=== PATIENT | male | born 1945 | race Caucasian/White ===

== ENCOUNTER 2016-08-25 09:22 | Inpatient (IN) | payer MEDICARE ==
[2016-08-25] VITALS (8 sets, daily range): BP systolic 103–128; BP diastolic 58–66; PULSE 62–81; RESP 13–20; TEMP 98.4–100.4; O2SAT 96–98
[2016-08-25] MEDS ORDERED: ceFAZolin 2 GM PREMIX 50 ML ONE (09:27)
[2016-08-25] MEDS ORDERED: DIPHTH/TETANUS/ACEL PERTUSSIS (BOOSTER) 0.5 ML VIAL/PFS IM ONE ×2 (09:28→10:33)
[2016-08-25 09:43] LABS: I-STAT POTASSIUM 3.9 MMOL/L (3.5-4.9); I-STAT SODIUM 143 MMOL/L (138-146)
[2016-08-25 09:45] LABS: AUTOMATED NEUTROPHIL # 3.5 TH/MM3 (1.8-7.7); BASOPHIL # 0.1 TH/MM3 (0-0.2); BASOPHIL % 1.2 % (0.0-2.0); EOSINOPHIL # 0.2 TH/MM3 (0-0.4); EOSINOPHIL % 4.1 % (0.0-4.0); HEMATOCRIT 36.4 % (39.0-51.0); HEMO FLAGS DIFF FINAL; LYMPHOCYTE # 0.9 TH/MM3 (1.0-4.8); MEAN CELL VOLUME 92.1 FL (80.0-100.0); MEAN CORPUSCULAR HGB CONC 33.7 % (32.0-36.0); MONO % 12.6 % (0.0-8.0); NEUT % 65.1 % (16.0-70.0); PLATELET COUNT 136 TH/MM3 (150-450); RED BLOOD COUNT 3.96 MIL/MM3 (4.50-5.90); RED CELL DISTRIBUTION WIDTH 16.6 % (11.6-17.2); WHITE BLOOD COUNT 5.4 TH/MM3 (4.0-11.0)
[2016-08-25 09:51] LABS: APTT (PATIENT) 22.7 SEC (24.3-30.1); INTERNATIONAL NORMALIZED RATIO 1.1 RATIO; PROTHROMBIN TIME - PATIENT 12.7 SEC (9.8-11.6)
[2016-08-25] MEDS ORDERED: DOCUSATE SODIUM 100 MG CAP PO SCH ×2 (10:00→21:00)
[2016-08-25] MEDS ORDERED: MISCELLANEOUS NURSING INFORMATION XX SCH (10:00)
[2016-08-25] MEDS ORDERED: BACITRACIN TOP OINT 15 GM TUBE TOP SCH (10:00)
[2016-08-25] MEDS ORDERED: ENALAPRILAT 1.25 MG/ML VIAL IV PRN (10:00)
[2016-08-25] MEDS ORDERED: CHLORHEXIDINE GLUCONATE 2 % 1 PACK (2 CLOTHS) TOP PRN (10:00)
[2016-08-25] MEDS ORDERED: HYDROmorphone HCL PF 1 MG/ML VIAL IVP PRN (10:00)
[2016-08-25] MEDS ORDERED: SODIUM CHLORIDE 0.9% FLUSH 10 ML FLUSH IV FLUSH PRN ×2 (10:00→17:15)
[2016-08-25] MEDS ORDERED: ONDANSETRON HCL 4 MG/2 ML VIAL IV PRN (10:00)
[2016-08-25] MEDS ORDERED: IOHEXOL 350 MG/ML 10 ML VIAL (for RAD DIAG) IV ONE (10:13)
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
[2016-08-25] MEDS ORDERED: MORPHINE SULFATE 4 MG/ML INJ IV PUSH ONE (10:30)
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
[2016-08-25] MEDS: SODIUM CHLOR 0.9% 1000 ML INJ 1,000 ML IV SCH ×2 (10:33→19:52)
[2016-08-25] MEDS ORDERED: ceFAZolin 2 GM PREMIX 50 ML IV STA (10:33)
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
[2016-08-25 10:42] LABS: CREATINE KINASE 130 U/L (39-308)
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
[2016-08-25] MEDS ORDERED: SODIUM CHLOR 0.9% 1000 ML INJ 1,000 ML IV ONE (10:45)
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
[2016-08-25 10:54] LABS: CKMB 1.8 NG/ML (0.5-3.6)
[2016-08-25] MEDS ORDERED: LIDOCAINE 1%/EPINEPHrine 1:100,000 SOLN 20 ML VIAL INFIL ONE (11:30)
--- NOTE | 2016-08-25 12:07 | PD ---
Physical Exam Time Seen by Provider: 12:03 Narrative I was asked to perform laceration repair to this patient's face. For further details regarding the patient's visit please see the physician's documentation. Data Data Last Documented VS Vital Signs Date Time Temp Pulse Resp B/P Pulse Ox O2 Delivery O2 Flow Rate FiO2 08/25/16 09:15 98 21 Orders Cefazolin 2 Gm Premix (Ancef 2 Gm Premix (08/25/16 09:27) Wujb-Cfw-Trkvls (Booster) Inj (Boostrix (08/25/16:28) I-Stat Profile (08/25/16:27) I-Stat Creatinine (08/25/16:27) Complete Blood Count With Diff (08/25/16:) Prothrombin Time / Inr (Pt) (08/25/16:27) Act Partial Throm Time (Ptt) (08/25/16:27) Type And Screen (08/25/16:) Alcohol (Ethanol) (08/25/16:27) Chest, Single Ap (08/25/16:27) Pelvis, Ap Only (Routine) (08/25/16:27) Ct Brain W/O Iv Contrast(Rout) (08/25/16:27) Ct Cerv Spine W/O Contrast (08/25/16:27) Ct Abd/Pel W Iv Contrast(Rout) (08/25/16:27) Ct Thorax/ Chest W Iv Contrast (08/25/16:27) Ct Thor Spine W/O Contrast (08/25/16:27) Ct Lumb Spine W/O Contrast (08/25/16:27) Ct Facial Bones W/O Iv Cont (08/25/16:27) Iv Access Insert/Monitor (08/25/16:27) Ecg Monitoring (08/25/16:27) Oximetry (08/25/16:) Oxygen Administration (08/25/16:27) Ed Poc Ultrasound (08/25/16:27) Urinary Catheter Insert/Apply (08/25/16:27) Ckmb (Isoenzyme) Profile (08/25/16 09:38) Troponin I (08/25/16 09:38) Urinalysis - C+S If Indicated (08/25/16 09:38) Consult Teressa Gts (08/25/16 ) Admit To Inpatient (08/25/16 ) Vital Signs (Adult) AL.QSHIFT (08/25/16 09:52) Intake + Output AL.Q8H (08/25/16 09:52) Resp Pulse Oximetry (08/25/16 ) Neuro Checks AL.Q4H (08/25/16 09:52) Diet Npo (08/25/16 Breakfast) Scd / [place] / Foot Pump AL.QSHIFT (08/25/16 09:52) Resp Incentive Spirometry (08/25/16 ) ^ Instruction (08/25/16 09:52) Complete Blood Count With Diff (08/26/16 06:00) Basic Metabolic Panel (Bmp) (08/26/16 06:00) Chest, Single Ap (08/26/16 ) Sodium Chlor 0.9% 1000 Ml Inj (Ns 1000 M (08/25/16 09:52) Sodium Chloride 0.9% Flush (Ns Flush) (08/25/16 10:00) Hydromorphone Pf Inj (Dilaudid Pf Inj) (08/25/16 10:00) Acetamin-Hydrocod 325-5 Mg ([place] 5-325 (08/25/16 10:00) Acetamin-Hydrocod 325-5 Mg ([place] 5-325 (08/25/16 10:00) Enalaprilat Inj (Vasotec Inj) (08/25/16 10:00) Ondansetron Inj (Zofran Inj) (08/25/16 10:00) Pantoprazole Inj (Protonix Inj) (08/25/16 10:00) Bacitracin Oint (Baciguent Oint) (08/25/16 10:00) Consult Pt Eval & Treat (08/25/16 09:52) Docusate Sodium (Colace) (08/25/16 10:00) Deputy Controller / Telemetry AL.Q8H (08/25/16 09:52) ^ Initiate Protocol (08/25/16 09:52) ^ Instruction (08/25/16 09:52) Misc Nursing Information (08/25/16 10:00) Chlorhexidine 2% Cloth (Chlorhexidine 2% (08/26/16 04:00) Chlorhexidine 2% Cloth (Chlorhexidine 2% (08/25/16 10:00) Mrsa Pcr Surveillance (08/25/16 09:52) Inpatient Certification (08/25/16 ) Admit Order (Ed Use Only) (08/25/16 10:04) CKMB (08/25/16 09:26) CKMB% (08/25/16 09:26) Labs Laboratory Tests Test 08/25/16 09:26 White Blood Count 5.4 TH/MM3 Red Blood Count 3.96 MIL/MM3 Hemoglobin 12.3 GM/DL Bedside Hemoglobin 11.9 G/DL Hematocrit 36.4 % Bedside Hematocrit 35.0 % Mean Corpuscular Volume 92.1 FL Mean Corpuscular Hemoglobin 31.0 PG Mean Corpuscular Hemoglobin 33.7 % Concent Red Cell Distribution Width 16.6 % Platelet Count 136 TH/MM3 Mean Platelet Volume 9.1 FL Neutrophils (%) (Auto) 65.1 % Lymphocytes (%) (Auto) 17.0 % Monocytes (%) (Auto) 12.6 % Eosinophils (%) (Auto) 4.1 % Basophils (%) (Auto) 1.2 % Neutrophils # (Auto) 3.5 TH/MM3 Lymphocytes # (Auto) 0.9 TH/MM3 Monocytes # (Auto) 0.7 TH/MM3 Eosinophils # (Auto) 0.2 TH/MM3 Basophils # (Auto) 0.1 TH/MM3 CBC Comment DIFF FINAL Differential Comment Prothrombin Time 12.7 SEC Prothromb Time International 1.1 RATIO Ratio Activated Partial 22.7 SEC Thromboplast Time Bedside Sodium 143 MMOL/L Bedside Potassium 3.9 MMOL/L Bedside Chloride 109 MMOL/L Bedside Blood Urea Nitrogen 10 MG/DL Bedside Creatinine 1.0 MG/DL Bedside Glucose 106 MG/DL Total Creatine Kinase 130 U/L Creatine Kinase MB 1.8 NG/ML Troponin I LESS THAN 0.02 NG/ML Ethyl Alcohol Level LESS THAN 3 MG/DL Blood Type A POSITIVE Antibody Screen NEGATIVE MDM Supervised Visit with PROMISE: No Procedures Procedure Narrative LACERATION LOCATION: Just below right side of nose. LENGTH: 2 cm NUMBER OF STITCHES/CORDELIA: 5 sutures REPAIR: The area of the laceration was prepped with Betadine and sterilely draped. The laceration was infiltrated with 1% lidocaine with epinephrine. Devitalized tissue from the laceration was removed. The wound was copiously irrigated and explored without evidence of foreign body, tendon injury or neurovascular injury. The wound was closed using 4.0 Ethilon. This was a single layer repair. Antibiotic ointment and a sterile dressing was applied. The patient was advised to keep the dressing clean and dry. Patient tolerated the procedure well. Of note, there was a 5 mm piece of rock removed from a very small puncture wound in the lower right nares. This did not require suture closure but was cleansed and ointment was applied. Diagnosis Primary Impression: Syncope and collapse Additional Impressions: Head injury Laceration of face, complex Rebecca Kaiser Aug 25, 2016 12:06
[2016-08-25] MEDS: PANTOPRAZOLE SODIUM 40 MG VIAL IVP SCH (13:13)
--- NOTE | 2016-08-25 13:50 | RADRPT ---
EXAM DATE/TIME: 08/25/2016 12:53 [facility] COMPARISON: No previous studies available for comparison. INDICATIONS : Syncope. MEDICAL HISTORY : Syncope. SURGICAL HISTORY : None. ENCOUNTER: Initial ACUITY: 1 day PAIN SCORE: 5/10 LOCATION: Bilateral neck PEAK SYSTOLIC VELOCITIES (cm/sec): ICA/CCA RATIO: Right: 1.4 Left: 1.3 ICA: Right: 106 Left: 111 CCA: Right: 77 Left: 88 ECA: Right: 95 Left: 70 VERTEBRAL: Right: 85 antegrade Left: 52 antegrade Elevated flow velocities and ICA/CCA ratios have been found to correlate with increased degrees of vessel stenosis, calculated as percentage of diameter relative to a normal segment of distal ICA/CCA FINDINGS: RIGHT CAROTID: No significant stenosis is visualized. The waveforms are within normal limits. LEFT CAROTID: No significant stenosis is visualized. The waveforms are within normal limits. VERTEBRAL ARTERIES: Antegrade flow is seen in both vertebral arteries. MISCELLANEOUS: None. CONCLUSION: 1. No evidence of hemodynamically significant lesion. Teodoro Villalta MD on August 25, 2016 at 13:47 Board Certified Radiologist. This report was verified electronically.
[2016-08-25 15:26] LABS: BLOOD, URINE NEG (NEG); COMMENT (UR) CULT NOT INDICATED; CULTURE IF INDICATED CULT NOT INDICATED; GLUCOSE,URINE NEG (NEG); KETONE, URINE NEG (NEG); NITRITE,URINE NEG (NEG); PH, URINE 7.5 (5.0-8.5); URINE COLOR YELLOW (YELLW/STRAW)
[2016-08-25] MEDS ORDERED: MAGNESIUM SULFATE INJ 2 GM in SODIUM CHLORIDE 0.9% INJ 100 ML IV PRN (17:15)
[2016-08-25] MEDS ORDERED: ALUMINUM/MAGNESIUM/SIMETH 30 ML CUP PO PRN (17:15)
[2016-08-25] MEDS ORDERED: RESP: ALBUTEROL 2.5 MG/3 ML NEB (PRN) NEB (17:15)
[2016-08-25] MEDS ORDERED: cloNIDine HCL 0.1 MG TAB PO PRN (17:15)
[2016-08-25] MEDS ORDERED: TERBUTALINE INJ 1 MG/ML AMP SQ PRN (17:15)
[2016-08-25] MEDS ORDERED: DOPamine INJ PREMIX 500 ML IV SCH (17:15)
[2016-08-25] MEDS ORDERED: MENTHOL LOZENGE BUCCAL PRN (17:15)
[2016-08-25] MEDS ORDERED: LABETALOL HCL 100 MG/20 ML VIAL IV PRN (17:15)
[2016-08-25] MEDS ORDERED: MAGNESIUM HYDROXIDE SUSP 30 ML CUP PO PRN (17:15)
[2016-08-25] MEDS ORDERED: POTASSIUM CHLOR 20 MEQ PREMIX 100 ML IV PRN (17:15)
[2016-08-25] MEDS ORDERED: CALCIUM GLUCONATE INJ 1 GM in SODIUM CHLORIDE 0.9% INJ 100 ML IV PRN (17:15)
--- NOTE | 2016-08-25 17:48 | HHI.PR ---
Immediate Post Op Note Procedure Date: Aug 25, 2016 Pre Op Diagnosis: complex lower lip laceration/injury 4.5 cm Post Op Diagnosis: bryn Surgeon: Barry Lincoln Theatre Professor(s): none Procedure: repair of complex lower lip laceration Findings: macerated, stellate soft tissue injury Complications: none Specimen(s) removed: none Estimated blood loss: minimal Anesthesia: Local (1 %lidocaine wtih 1:000, 000 epi approx 6 cc) Barry Lincoln DMD Aug 25, 2016 17:48
[2016-08-25] MEDS: DEXAMETHASONE SOD PHOS 4 MG/ML VIAL IV PUSH SCH ×2 (17:54→23:46)
--- NOTE | 2016-08-25 20:03 | EKG ---
Date Performed: 08/25/2016 Time Performed: 09:31:42 PTAGE: 89 years EKG: Sinus rhythm NORMAL ECG NO PREVIOUS TRACING DOCTOR: Lucía Mejia Interpretating Date/Time 08/25/2016 20:02:44
[2016-08-25] MEDS: ACETAMINOPHEN/HYDROcodone 325 MG/5 MG TAB PO PRN ×2 (20:47→23:45)
[2016-08-25] MEDS: BACITRACIN TOP OINT 15 GM TUBE TOP SCH (21:00)
[2016-08-25] MEDS ORDERED: SODIUM CHLORIDE 0.9% FLUSH 10 ML FLUSH IV FLUSH SCH (21:00)
--- NOTE | 2016-08-25 22:28 | RADRPT ---
EXAM DATE/TIME: 08/25/2016 21:26 [facility] COMPARISON: CT THORACIC SPINE W/O CONTRAST, August 25, 2016, 9:52. INDICATIONS : Fracture. Possible T7 Fx MEDICAL HISTORY : None. SURGICAL HISTORY : None. ENCOUNTER: Initial ACUITY: 1 day PAIN SCORE: 8/10 LOCATION: Thoracic Spine TECHNIQUE: Multiplanar multisequence MRI of the thoracic spine was performed. FINDINGS: There is mild acute appearing compression fracture of the T7 vertebral body. Fracture involves the roach perior endplate and also both the anterior and posterior cortices. There is no retropulsion. There is no fracture-associated foraminal or spinal stenosis. There is no epidural hematoma. Other vertebral bodies are intact. Mild S-shaped thoracic spine scoliosis noted. 14 mm sclerotic focu s seen of T12, nonspecific but most likely a benign bone island. No large disc protrusions. Thoracic cord is normal. CONCLUSION: Mild, acute appearing T7 compression fracture without significant retropulsion or associated foramina l or spinal stenosis. Ed Ni MD on August 25, 2016 at 22:22 Board Certified Radiologist. This report was verified electronically.
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
--- NOTE | 2016-08-25 22:54 | RADRPT ---
EXAM DATE/TIME: 08/25/2016 21:26 [facility] COMPARISON: CT CERVICAL SPINE W/O CONTRAST, August 25, 2016, 9:41. INDICATIONS : Fracture. Possible contusion of C5-6 MEDICAL HISTORY : None. SURGICAL HISTORY : None. ENCOUNTER: Initial ACUITY: 1 day PAIN SCORE: 8/10 LOCATION: neck TECHNIQUE: Multiplanar, multisequence MRI examination of the cervical spine was performed. FINDINGS: Slight degenerative appearing kyphosis seen centered around C5/C6. In the imaged position, there is a lso a millimeter or 2 of degenerative appearing retrolisthesis of C5/C6 and C6-C7. A couple millimete rs of degenerative appearing anterolisthesis seen at C2/C3. No fracture or acute-appearing malalignme nt. Cervical spine vertebral bodies have normal height. Visualized portions of the posterior fossa ar e grossly unremarkable. There is mild osteoarthritis anteriorly at C1/C2. C2-C3: Disc is desiccated but otherwise normal. Grade 1 degenerative anterolisthesis. There is mild bilatera l uncovertebral and facet osteoarthritis. No foraminal or spinal stenosis. C3-C4: The disc is desiccated. No significant loss of height. Very small, broad posterior disc osteophyte co mplex and right greater than left uncovertebral and facet osteoarthritis. Slight spinal stenosis with out cord compression or cord signal abnormality. There is severe right and mild to moderate left fora hien stenosis. C4-C5: The disc is desiccated and has mild loss of height. Small, broad posterior disc osteophyte complex an d moderate to severe bilateral uncovertebral and facet osteoarthritis. There is mild right and modera te to severe left foraminal stenosis. C5-C6: Disc is desiccated and has mild to moderate loss of height. Grade 1 degenerative retrolisthesis. Mode rate, broad posterior disc osteophyte complex and moderate, bilateral uncovertebral and facet osteoar thritis with hypertrophic bone. There is moderate spinal stenosis with borderline cord compression in the imaged position. Faint T2 cord signal abnormality seen at this level. There is severe bilateral foraminal stenosis. C6-C7: The disc is desiccated and has moderate loss of height, especially posteriorly. There is a moderate, broad posterior disc osteophyte complex and moderate to severe bilateral uncovertebral and facet oste oarthritis. There is moderate spinal stenosis with borderline cord compression in the imaged position . Faint central T2 cord signal abnormality seen at this level. C7-T1: Disc is desiccated but otherwise normal. Mild, bilateral facet osteoarthritis. There is mild foramina l stenosis on the left. CONCLUSION: 1. No fracture or acute-appearing malalignment of the cervical spine. 2. Multilevel degenerative changes and slight decrease of degenerative malalignment as above. 3. Spinal stenosis and borderline cord compression at C5/C6 and C6/C7. Paroxysmal cord compression roach spected as there is some edema and/or myelomalacia centrally of the cord at both of these levels. An acute cord contusion is considered less likely. 4. Multifocal degenerative foraminal stenosis. Please see above. Ed Ni MD on August 25, 2016 at 22:43 Board Certified Radiologist. This report was verified electronically.
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
[2016-08-26] VITALS (10 sets, daily range): BP systolic 98–116; BP diastolic 52–64; PULSE 63–78; RESP 14–16; TEMP 98.2–100.2; O2SAT 94–100
[2016-08-26] MEDS: SODIUM CHLOR 0.9% 1000 ML INJ 1,000 ML IV SCH (03:00)
[2016-08-26 03:40] LABS: AUTOMATED NEUTROPHIL # 8.6 TH/MM3 (1.8-7.7); BASOPHIL % 0.2 % (0.0-2.0); HEMATOCRIT 35.2 % (39.0-51.0); HEMO FLAGS DIFF FINAL; LYMPH % 6.4 % (9.0-44.0); LYMPHOCYTE # 0.6 TH/MM3 (1.0-4.8); MEAN CELL VOLUME 92.2 FL (80.0-100.0); MEAN CORPUSCULAR HEMOGLOBIN 31.7 PG (27.0-34.0); MEAN CORPUSCULAR HGB CONC 34.3 % (32.0-36.0); MONO % 2.9 % (0.0-8.0); NEUT % 90.5 % (16.0-70.0); PLATELET COUNT 114 TH/MM3 (150-450); RED BLOOD COUNT 3.82 MIL/MM3 (4.50-5.90); RED CELL DISTRIBUTION WIDTH 16.6 % (11.6-17.2); WHITE BLOOD COUNT 9.5 TH/MM3 (4.0-11.0)
[2016-08-26] MEDS: CHLORHEXIDINE GLUCONATE 2 % 1 PACK (2 CLOTHS) TOP SCH (04:00)
[2016-08-26 04:07] LABS: BICARBONATE 20.9 MEQ/L (21.0-32.0); POTASSIUM 4.3 MEQ/L (3.5-5.1)
--- NOTE | 2016-08-26 04:25 | RADRPT ---
EXAM DATE/TIME: 08/26/2016 03:32 [facility] COMPARISON: CHEST SINGLE AP, August 25, 2016, 9:16. INDICATIONS : Short of breath. MEDICAL HISTORY : None. SURGICAL HISTORY : None. ENCOUNTER: Subsequent ACUITY: 2 days PAIN SCORE: Non-responsive. LOCATION: Bilateral chest FINDINGS: A single view of the chest demonstrates the lungs to be symmetrically aerated without evidence of mas s, infiltrate or effusion. The cardiomediastinal contours are unremarkable. Osseous structures are intact. CONCLUSION: No acute pulmonary infiltrates. Alber Singh MD on August 26, 2016 at 4:23 Board Certified Radiologist. This report was verified electronically.
[2016-08-26] MEDS: ACETAMINOPHEN/HYDROcodone 325 MG/5 MG TAB PO PRN (06:15)
[2016-08-26] MEDS: DEXAMETHASONE SOD PHOS 4 MG/ML VIAL IV PUSH SCH ×3 (06:16→18:00)
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
[2016-08-26] MEDS: PANTOPRAZOLE SODIUM 40 MG VIAL IVP SCH ×2 (09:00→11:55)
[2016-08-26] MEDS ORDERED: PIPERACIL-TAZO 3.375 GM PREMIX 50 ML IV SCH (09:00)
[2016-08-26] MEDS: DOCUSATE SODIUM 50 MG/SENNA 8.6 MG TAB PO SCH ×2 (09:00→20:15)
[2016-08-26] MEDS: BACITRACIN TOP OINT 15 GM TUBE TOP SCH ×3 (09:00→21:00)
[2016-08-26] MEDS ORDERED: POLYETHYLENE GLYCOL 17 GM PKG PO SCH (09:00)
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
[2016-08-26] MEDS ORDERED: PHENYLEPH/NS 1000 MCG/10 ML SYR IV ONE (12:00)
[2016-08-26] MEDS ORDERED: LACTATED RINGER'S 1000 ML INJ 2,000 ML IV ONE (12:00)
[2016-08-26] MEDS ORDERED: ePHEDrine/NS 50 MG/5 ML SYR IV ONE (12:00)
[2016-08-26] MEDS ORDERED: ONDANSETRON HCL 4 MG/2 ML VIAL IV PUSH ONE (12:00)
[2016-08-26] MEDS ORDERED: PROPOFOL 200 MG/20 ML AMP IV ONE (12:00)
[2016-08-26] MEDS ORDERED: THROMBIN (TOPICAL) 5,000 UNIT VIAL ONE ×2 (13:46→16:47)
[2016-08-26] MEDS ORDERED: BUPIVACAINE/EPINEPHRINE 0.5% 50 ML VIAL ONE (13:46)
[2016-08-26] MEDS ORDERED: VANCOMYCIN HCL 1000 MG VIAL ONE (13:46)
[2016-08-26] MEDS ORDERED: GELFOAM SIZE 100 ONE ×2 (13:47→16:47)
[2016-08-26] MEDS ORDERED: BUPIVACAINE/EPINEPHRINE 0.5% PF 30 ML VIAL ONE (13:47)
[2016-08-26] MEDS ORDERED: VANCOMYCIN 500 MG VIAL ONE (13:47)
[2016-08-26] MEDS ORDERED: fentaNYL CITRATE 250 MCG/5 ML AMP ONE (13:54)
[2016-08-26] MEDS ORDERED: MIDAZOLAM HCL 2 MG/2 ML VIAL ONE ×2 (13:54→13:55)
[2016-08-26] MEDS ORDERED: FAMOTIDINE 20 MG/2 ML VIAL ONE (13:54)
[2016-08-26] MEDS ORDERED: ACETAMINOPHEN 1000 MG/100 ML VIAL IV ONE (13:54)
[2016-08-26] MEDS ORDERED: DO NOT ADM ANY ANTICOAGULANT DRUGS PRN (18:00)
--- NOTE | 2016-08-26 18:14 | PD.OP ---
MARCELA Paz Morris 162 Operative Report Date of Surgery: Aug 26, 2016 Preoperative Diagnosis: Central cervical spinal cord injury with cord contusion/edema; C5-6 and C6-7 disc osteophyte complex with associated spinal and foraminal stenosis Postoperative Diagnosis: Same Procedure: Anterior cervical C5-6 and C6-7 microdiscectomy with the interbody fusion; anterior C5-7 cervical plate placement; C5-6 and 6-7 interbody cage placement; microsurgical technique Anesthesia: Gen. endotracheal by Cristobal Win Surgeon: Jonh Key M.D. Sales And Operations Trainee(s): Shakira Mercer Operation and Findings: Following administration of general endotracheal anesthesia with the neck maintained neutral position in a [place] J collar using glide scope intubation, the patient received a gram of vancomycin and Decadron 10 mg intravenously. Sequential compression devices were placed in supine position on a Kimo table and all pressure points adequately padded. The head secured in a donut, the collar then removed and anterior cervical region then shaved and prepped with Chloraprep and sterilely draped with Ioban along with the usual sterile draping. A transverse skin incision on the left side of the neck was then made after infiltrating the skin with 0.5% Marcaine with epinephrine solution extending down through the platysma. At the anterior border of the sternocleidomastoid further dissection was undertaken developing a plane between the carotid sheath laterally and the trachea esophagus medially. The prevertebral fascia was exposed and dissected out. The medial attachments of the longus colli muscles were detached and a self-retaining retractor used for exposure. The C5-6 disc space was localized with a marking the disc space and using lateral fluoroscopy. There was a ligamentous disruption at the C6-7 level with associated instability noted. There were large anterior osteophytes at the C5-6 and C6 7 levels with very degenerative disks in the near-complete disc height collapse. Wickett distraction screws 14 mm length were placed one in the C5 and one in the C7 body interbody distraction and exposure. The anterior osteophytes were resected with a Leksell and annulus incised with a 15 blade and further dissection undertaken using microtechnique with microscope magnification. Diskectomy was undertaken with pituitaries at both levels and the endplates were also decorticated with curettes and drill bit. And more posteriorly there was disk osteophyte complex compressing the thecal sac along with a significant uncovertebral joint hypertrophy with foraminal stenosis which was decompressed along with removal of the posterior longitudinal ligaments at both levels. The foramen was decompressed bilaterally using a Kerrison's and palpation with a nerve hook, the exiting nerve roots were felt to be free. The area was then copiously irrigated. I then placed a Peek cage packed with local autograft bone one at the C5-6 interspace and another one at the C6-7interspace under fluoroscopy guidance. Wickett distraction pins were removed and the holes plugged with Gelfoam for hemostasis. In order to facilitate the fusion and provide stabilization, a Precision spine cervical plate was then placed with two 14 mm variable angle screws in the C5 body, one in the C6 body and two 14 mm fixed angle screws in the C7 body. The plate screw locking mechanism was then engaged. AP and lateral fluoroscopy confirmed good placement of the construct and the retractor was then removed. Muscular bleeding points were cauterized with bipolar cautery and Gelfoam was then also used for hemostasis which was removed. The platysma was then approximated using 3-0 Vicryl interrupted stitches and 3-0 Vicryl subcuticular stitch also placed in an interrupted fashion, and final skin closure was with Mastisol and Steri- Strips. Sterile dressing was then applied and the neck immobilized in a [place] J collar. The patient was then extubated and taken to the recovery room. There are no intraoperative complications and all sponge and needle counts were correct at the end of procedure. Estimated blood loss was about 200 cc. The patient did undergo intraoperative neurologic monitoring which remained stable throughout the surgery. Jonh Key MD Aug 26, 2016 18:14
[2016-08-26] MEDS ORDERED: ACETAMINOPHEN 325 MG TAB PO PRN (18:15)
[2016-08-26] MEDS ORDERED: MAGNESIUM HYDROXIDE SUSP 30 ML CUP PO PRN (18:15)
[2016-08-26] MEDS ORDERED: LABETALOL HCL 100 MG/20 ML VIAL IV PRN (18:15)
[2016-08-26] MEDS ORDERED: RESP: ALBUTEROL 2.5 MG/3 ML NEB (PRN) NEB (18:15)
[2016-08-26] MEDS ORDERED: ALUMINUM/MAGNESIUM/SIMETH 30 ML CUP PO PRN (18:15)
[2016-08-26] MEDS ORDERED: CYCLOBENZAPRINE HCL 10 MG TAB PO PRN (18:15)
[2016-08-26] MEDS ORDERED: MENTHOL LOZENGE BUCCAL PRN (18:15)
[2016-08-26] MEDS ORDERED: cloNIDine HCL 0.1 MG TAB PO PRN (18:15)
[2016-08-26] MEDS ORDERED: ZOLPIDEM TARTRATE 5 MG TAB PO PRN (18:15)
[2016-08-26] MEDS ORDERED: SODIUM CHLORIDE 0.9% FLUSH 10 ML FLUSH IV FLUSH PRN (18:15)
--- NOTE | 2016-08-26 18:18 | RADRPT ---
EXAM DATE/TIME: 08/26/2016 14:19 [place] COMPARISON: No previous studies available for comparison. INDICATIONS : C5-6 C6-7 fusion MEDICAL HISTORY : None. SURGICAL HISTORY : None. ENCOUNTER: Initial ACUITY: 1 day PAIN SCORE: Non-responsive. LOCATION: Bilateral C-spine. FINDINGS: Surgical screws traverse the bodies of C5, C6 and C7 with a plate placed anteriorly and evidence for anterior fusion. CONCLUSION: Intact immediate postsurgical changes. Hayder Pereira MD on August 26, 2016 at 18:16 Board Certified Radiologist. This report was verified electronically.
[2016-08-26] MEDS: SODIUM CHLORIDE 0.9% FLUSH 10 ML FLUSH IV FLUSH SCH (20:16)
[2016-08-26 20:37] LABS: HEMATOCRIT 37.1 % (39.0-51.0); MEAN CELL VOLUME 93.2 FL (80.0-100.0); MEAN CORPUSCULAR HGB CONC 33.3 % (32.0-36.0); PLATELET COUNT 122 TH/MM3 (150-450); RED BLOOD COUNT 3.98 MIL/MM3 (4.50-5.90); RED CELL DISTRIBUTION WIDTH 16.8 % (11.6-17.2); REVIEW FLAG FINAL; WHITE BLOOD COUNT 11.8 TH/MM3 (4.0-11.0)
[2016-08-26 20:47] LABS: BICARBONATE 19.3 MEQ/L (21.0-32.0); POTASSIUM 4.8 MEQ/L (3.5-5.1)
[2016-08-27] VITALS (12 sets, daily range): BP systolic 86–132; BP diastolic 48–72; PULSE 63–82; RESP 11–22; TEMP 97.7–99.5; O2SAT 93–98
[2016-08-27] MEDS: ACETAMINOPHEN/HYDROcodone 325 MG/5 MG TAB PO PRN ×3 (00:44→20:53)
[2016-08-27] MEDS: DEXAMETHASONE SOD PHOS 4 MG/ML VIAL IV PUSH SCH ×3 (00:45→12:40)
[2016-08-27] MEDS: SODIUM CHLOR 0.9% 1000 ML INJ 1,000 ML IV SCH (01:52)
[2016-08-27] MEDS: CHLORHEXIDINE GLUCONATE 2 % 1 PACK (2 CLOTHS) TOP SCH (04:00)
[2016-08-27 05:14] LABS: AUTOMATED NEUTROPHIL # 9.9 TH/MM3 (1.8-7.7); BASOPHIL % 0.1 % (0.0-2.0); HEMATOCRIT 34.2 % (39.0-51.0); HEMO FLAGS DIFF FINAL; LYMPH % 4.9 % (9.0-44.0); LYMPHOCYTE # 0.5 TH/MM3 (1.0-4.8); MEAN CELL VOLUME 93.2 FL (80.0-100.0); MEAN CORPUSCULAR HEMOGLOBIN 31.5 PG (27.0-34.0); MEAN CORPUSCULAR HGB CONC 33.8 % (32.0-36.0); PLATELET COUNT 113 TH/MM3 (150-450); RED BLOOD COUNT 3.67 MIL/MM3 (4.50-5.90); RED CELL DISTRIBUTION WIDTH 16.8 % (11.6-17.2); WHITE BLOOD COUNT 11.2 TH/MM3 (4.0-11.0)
[2016-08-27 05:58] LABS: BICARBONATE 21.9 MEQ/L (21.0-32.0); CALCIUM-PROTEIN CORRECTED 8.3 MG/DL (8.5-10.1); POTASSIUM 4.5 MEQ/L (3.5-5.1); TOTAL BILIRUBIN ADULT 0.7 MG/DL (0.2-1.0)
[2016-08-27] MEDS: POLYETHYLENE GLYCOL 17 GM PKG PO SCH (09:00)
[2016-08-27] MEDS: DOCUSATE SODIUM 50 MG/SENNA 8.6 MG TAB PO SCH ×2 (09:00→20:51)
[2016-08-27] MEDS: BACITRACIN TOP OINT 15 GM TUBE TOP SCH ×2 (10:25→20:52)
[2016-08-27] MEDS: SODIUM CHLORIDE 0.9% FLUSH 10 ML FLUSH IV FLUSH SCH ×2 (10:25→21:07)
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
[2016-08-28] VITALS (8 sets, daily range): BP systolic 106–135; BP diastolic 56–82; PULSE 64–67; RESP 18–20; TEMP 97.2–99.2; O2SAT 94–96
[2016-08-28] MEDS: PANTOPRAZOLE SODIUM 40 MG VIAL IVP SCH (07:49)
[2016-08-28] MEDS: POLYETHYLENE GLYCOL 17 GM PKG PO SCH (07:51)
[2016-08-28] MEDS: ACETAMINOPHEN/HYDROcodone 325 MG/5 MG TAB PO PRN ×3 (07:51→21:23)
[2016-08-28] MEDS: DOCUSATE SODIUM 50 MG/SENNA 8.6 MG TAB PO SCH ×2 (07:51→21:23)
[2016-08-28] MEDS: SODIUM CHLORIDE 0.9% FLUSH 10 ML FLUSH IV FLUSH SCH ×2 (07:52→21:24)
[2016-08-28] MEDS: BACITRACIN TOP OINT 15 GM TUBE TOP SCH ×2 (07:52→21:23)
[2016-08-28 08:27] LABS: BICARBONATE 22.6 MEQ/L (21.0-32.0); POTASSIUM 4.3 MEQ/L (3.5-5.1)
[2016-08-28 12:17] LABS: AUTOMATED NEUTROPHIL # 7.8 TH/MM3 (1.8-7.7); BASOPHIL % 0.2 % (0.0-2.0); EOSINOPHIL % 0.2 % (0.0-4.0); HEMATOCRIT 35.3 % (39.0-51.0); HEMO FLAGS DIFF FINAL; LYMPH % 11.3 % (9.0-44.0); LYMPHOCYTE # 1.2 TH/MM3 (1.0-4.8); MEAN CELL VOLUME 92.5 FL (80.0-100.0); MEAN CORPUSCULAR HEMOGLOBIN 32.3 PG (27.0-34.0); MEAN CORPUSCULAR HGB CONC 34.9 % (32.0-36.0); MONO % 13.5 % (0.0-8.0); NEUT % 74.8 % (16.0-70.0); PLATELET COUNT 118 TH/MM3 (150-450); RED BLOOD COUNT 3.82 MIL/MM3 (4.50-5.90); RED CELL DISTRIBUTION WIDTH 16.1 % (11.6-17.2); WHITE BLOOD COUNT 10.4 TH/MM3 (4.0-11.0)
[2016-08-28] MEDS ORDERED: BISACODYL 10 MG SUPP RECTAL ONE (13:30)
[2016-08-28] MEDS ORDERED: BISACODYL EC 5 MG TABEC PO ONE (13:30)
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
[2016-08-28] MEDS: NYSTAT/DIPHENHY/LIDO MOUTHWASH (Adult) 120ML SWISH-SPIT SCH ×3 (16:09→21:24)
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
[2016-08-29] VITALS (7 sets, daily range): BP systolic 104–124; BP diastolic 62–74; PULSE 66–73; RESP 18–20; TEMP 98.2–99.5; O2SAT 93–95
[2016-08-29] MEDS ORDERED: PANT40P PO (08:21)
[2016-08-29] MEDS ORDERED: CLON.1 PO (08:21)
[2016-08-29] MEDS ORDERED: MILKSUS PO (08:21)
[2016-08-29] MEDS ORDERED: MAG-LIQ PO (08:21)
[2016-08-29] MEDS ORDERED: POLY17S PO (08:21)
[2016-08-29] MEDS ORDERED: MAGICADU2 SWISH-SPIT (08:21)
[2016-08-29] MEDS ORDERED: CYCL1TAB29 PO (08:21)
[2016-08-29] MEDS ORDERED: SENN1TAB PO (08:21)
[2016-08-29] MEDS: NYSTAT/DIPHENHY/LIDO MOUTHWASH (Adult) 120ML SWISH-SPIT SCH ×4 (08:38→21:06)
[2016-08-29] MEDS: DOCUSATE SODIUM 50 MG/SENNA 8.6 MG TAB PO SCH ×2 (08:39→21:05)
[2016-08-29] MEDS: POLYETHYLENE GLYCOL 17 GM PKG PO SCH (08:39)
[2016-08-29] MEDS: PANTOPRAZOLE SODIUM 40 MG VIAL IVP SCH (08:39)
[2016-08-29] MEDS: BACITRACIN TOP OINT 15 GM TUBE TOP SCH ×2 (08:41→21:06)
[2016-08-29] MEDS: SODIUM CHLORIDE 0.9% FLUSH 10 ML FLUSH IV FLUSH SCH ×2 (08:42→21:05)
[2016-08-29] MEDS: ACETAMINOPHEN/HYDROcodone 325 MG/5 MG TAB PO PRN ×2 (08:49→21:05)
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
[2016-08-30] VITALS: BP 113/70; PULSE 68; RESP 20; TEMP 100.4; O2SAT 94
[2016-08-30 08:00] VITALS: BP 126/80; PULSE 65; RESP 17; TEMP 98.1; O2SAT 96
[2016-08-30] MEDS: DOCUSATE SODIUM 50 MG/SENNA 8.6 MG TAB PO SCH (08:18)
[2016-08-30] MEDS: PANTOPRAZOLE SODIUM 40 MG VIAL IVP SCH (08:18)
[2016-08-30] MEDS: SODIUM CHLORIDE 0.9% FLUSH 10 ML FLUSH IV FLUSH SCH (08:19)
[2016-08-30] MEDS: ACETAMINOPHEN/HYDROcodone 325 MG/5 MG TAB PO PRN (08:19)
[2016-08-30] MEDS: POLYETHYLENE GLYCOL 17 GM PKG PO SCH (08:19)
[2016-08-30] MEDS: NYSTAT/DIPHENHY/LIDO MOUTHWASH (Adult) 120ML SWISH-SPIT SCH ×2 (08:20→13:11)
[2016-08-30] MEDS: BACITRACIN TOP OINT 15 GM TUBE TOP SCH (08:20)
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
[2016-08-30] MEDS ORDERED: HYDR-3516 PO (11:38)
[2016-08-30 12:00] VITALS: BP 114/76; PULSE 72; RESP 17; TEMP 98.6; O2SAT 95
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
[2016-09-13] MEDS ORDERED: GETGO ROLLING W1 MI1 (15:01)
[2016-09-13] MEDS ORDERED: WHEEMIS3 (15:01)
[2016-09-15] MEDS ORDERED: PANT40TA3 PO (08:36)
[2016-09-15] MEDS ORDERED: CYCL1TAB29 PO (08:36)
[2016-09-15] MEDS ORDERED: SENN1TAB PO (08:36)
[2016-09-15] MEDS ORDERED: LORA-361 PO (08:36)
[2016-09-15] MEDS ORDERED: HYDR-3516 PO (08:36)
[2016-09-15] MEDS ORDERED: POLY17S PO (08:36)
== END 2016-08-30 16:41 | DRG 28 ==
LOC: NEPI 09:22 → EDBD 10:09 → NEDA 10:09 → N05A 15:08 → N03A 18:05 → N05B 08-27 14:58
PROVIDERS: ADMIT Surgery; ATTEND Surgery
PROC: 0CQ10ZZ Repair Lower Lip, Open Approach (ICD-10-PCS; 2016-08-25)
PROC: 0HQ1XZZ Repair Face Skin, External Approach (ICD-10-PCS; 2016-08-25)
PROC: 0RB30ZZ Excision of Cervical Vertebral Disc, Open Approach (ICD-10-PCS; 2016-08-26)
PROC: 4A11X4G Monitoring of Peripheral Nervous Electrical Activity, Intraoperative, External Approach (ICD-10-PCS; 2016-08-26)
PROC: 0RG20A0 Fusion of 2 or more Cervical Vertebral Joints with Interbody Fusion Device, Anterior Approach, Anterior Column, Open Approach (ICD-10-PCS; principal; 2016-08-26 14:08)
DX: S14.0XXA Concussion and edema of cervical spinal cord, initial encounter (principal); G82.54 Quadriplegia, C5-C7 incomplete; K76.0 Fatty (change of) liver, not elsewhere classified; S02.0XXA Fracture of vault of skull, initial encounter for closed fracture; S22.060A Wedge compression fracture of T7-T8 vertebra, initial encounter for closed fracture; S02.82XA Fracture of other specified skull and facial bones, left side, initial encounter for closed fracture; S14.125A Central cord syndrome at C5 level of cervical spinal cord, initial encounter; S01.511A Laceration without foreign body of lip, initial encounter; M47.892 Other spondylosis, cervical region; S01.81XA Laceration without foreign body of other part of head, initial encounter; M50.322 Other cervical disc degeneration at C5-C6 level; M25.78 Osteophyte, vertebrae; M48.02 Spinal stenosis, cervical region; S01.21XA Laceration without foreign body of nose, initial encounter; M50.323 Other cervical disc degeneration at C6-C7 level; S01.512A Laceration without foreign body of oral cavity, initial encounter; S02.5XXA Fracture of tooth (traumatic), initial encounter for closed fracture; S03.2XXA Dislocation of tooth, initial encounter; I10 Essential (primary) hypertension; V86.99XA Unspecified occupant of other special all-terrain or other off-road motor vehicle injured in nontraffic accident, initial encounter; Y93.I9 Activity, other involving external motion
CPT/HCPCS: 12011; 70450; 70486; 71010; 71260; 72040; 72125; 72128; 72131; 72141; 72146; 72170; 74177; 76000; 80048; 80053; 80307; 81001; 82435; 82550; 82552; 82565; 82947; 83735; 84132; 84295; 84484; 84520; 85025; 85027; 85610; 85730; 86850; 86900; 86901; 87641; 90471; 90715; 93005; 93880; 94150; 96374; 99291; C1713; C9113; G0390; J0131; J0690; J1100; J1170; J2250; J2270; J2370; J2405; J3010; J3370; J7030; J7120; L0150; L0172; L0484; Q9967